=== PATIENT | male | born 1995 | race African-American/Black ===

== ENCOUNTER 2018-03-18 07:07 | Emergency (ER) | payer SELFPAY ==
--- NOTE | 2018-03-18 07:34 | ER Document Report ---
ED Extremity Problem, Lower <BONNIE MELENDEZ - Last Filed: 03/18/18 10:50> - General Mode of Arrival: Ambulatory Information source: Patient <MEG SHAFFER - Last Filed: 03/18/18 12:32> - General Chief Complaint: Knee Injury Stated Complaint: KNEE INJURY Time Seen by Provider: 03/18/18 07:26 Notes: 23 year old male that presents to the emergency department today with complaints of left knee pain. Patient states he injured his left knee playing adult league football two weeks ago in [place]. Patient states he was running drills around cones and hit his left knee on a piece of metal. Patient states he has had swelling over the knee since injuring it. Patient has noticed foul smelling discharge. (MEG SHAFFER) - Related Data Allergies/Adverse Reactions: bee pollen Allergy (Verified 03/18/18 07:13) Past Medical History - General Information source: Patient - Social History Smoking Status: Current Every Day Smoker Cigarette use (# per day): Yes - 1 ppd Frequency of alcohol use: Social Lives with: Family Family History: Reviewed & Not Pertinent <MEG SHAFFER - Last Filed: 03/18/18 12:32> Review of Systems - Review of Systems Constitutional: No symptoms reported EENT: No symptoms reported Cardiovascular: No symptoms reported Respiratory: No symptoms reported Gastrointestinal: No symptoms reported Genitourinary: No symptoms reported Male Genitourinary: No symptoms reported Musculoskeletal: See HPI, Joint pain - left knee, Joint swelling - left knee Skin: See HPI, Lesions - left knee Hematologic/Lymphatic: No symptoms reported Neurological/Psychological: No symptoms reported -: Yes All other systems reviewed and negative <MEG SHAFFER - Last Filed: 03/18/18 12:32> Physical Exam <BONNIE MELENDEZ - Last Filed: 03/18/18 10:50> <MEG SHAFFER - Last Filed: 03/18/18 12:32> - Vital signs Vitals: Temp Pulse Resp BP Pulse Ox 98.4 F 87 16 133/89 H 100 03/18/18 07:21 03/18/18 07:21 03/18/18 07:21 03/18/18 07:21 03/18/18 07:21 - Notes Notes: Physical Exam: General: Alert, appears well. HEENT: Normocephalic. Atraumatic. PERRL. Extraocular movements intact. Oropharynx clear. Neck: Supple. Non-tender. Respiratory: No respiratory distress. Clear and equal breath sounds bilaterally. Cardiovascular: Regular rate and rhythm. Abdominal: Normal Inspection. Non-tender. No distension. Normal Bowel Sounds. Back: Non-tender. No deformity or step off. Extremities: Moves all four extremities. Upper extremities: Normal inspection. Normal ROM. Lower extremities: Left knee effusion, no pain with flexion/extension of left knee. Neurological: Normal cognition. AAOx4. Normal speech. Psychological: Normal affect. Normal Mood. Skin: 2cm x 3cm scabbed area with central opening over the anterior left knee. Pimple appearance over inferior anterior lateral left knee. (MEG SHAFFER) Course - Laboratory Result Diagrams: 03/18/18 07:55 03/18/18 07:55 <BONNIE MELENDEZ - Last Filed: 03/18/18 10:50> - Laboratory Result Diagrams: 03/18/18 07:55 03/18/18 07:55 <MEG SHAFFER - Last Filed: 03/18/18 12:32> - Re-evaluation Re-evalutation: 03/18/18 09:22 Lab work is unremarkable, specifically an ESR of 11. X-rays show all suprapatellar effusion with some soft tissue swelling. Physical exam shows a knee that can be flexed and extended, palpable effusion. There is a wound in the anterior superior aspect of the knee which is mostly scabbed over it appears to be an abrasion that is deep in the center. The center of that injury does communicate with subcutaneous tissue. There is no drainage noted and when it was gently squeezed there was no drainage seen. 03/18/18 10:50 The knee wound was cleaned and dressed, a knee immobilizer was applied to the right knee. The knee immobilizer fits well and provides stability and comfort when standing. (BONNEI MELENDEZ) - Vital Signs Vital signs: Temp Pulse Resp BP Pulse Ox 97.5 F 78 15 138/98 H 98 03/18/18 09:55 03/18/18 09:55 03/18/18 09:55 03/18/18 09:55 03/18/18 09:55 - Laboratory Laboratory results interpreted by me: 03/18/18 03/18/18 07:55 07:55 Hgb 13.3 L Creatinine 1.32 H Discharge <BONNIE MELENDEZ - Last Filed: 03/18/18 10:50> <MEG SHAFFER - Last Filed: 03/18/18 12:32> - Discharge Clinical Impression: Right knee sprain Qualifiers: Encounter type: initial encounter Involved ligament of knee: unspecified ligament Qualified Code(s): S83.91XA - Sprain of unspecified site of right knee , initial encounter Contusion of right knee Qualifiers: Encounter type: initial encounter Qualified Code(s): S80.01XA - Contusion of right knee, initial encounter Abrasion of right knee Qualifiers: Encounter type: initial encounter Qualified Code(s): S80.211A - Abrasion, right knee, initial encounter Condition: Stable Disposition: HOME, SELF-CARE Additional Instructions: Knee Effusion: You have a fluid collection in the knee joint, called an effusion. This fluid build up can occur from irritation of the synovial membrane lining the knee joint or from a more serious injury to the knee. Irritation of the membrane can occur from excessive, repetitive knee activitiy, like kneeling or squatting for extended periods or even just excessive walking, jogging, or skiing. Effusions also can occur with infections in the joint and with some arthritic conditions, especially gout. Fluid collections in these situations are usually yellow in color and either clear or cloudy in appearance. Significant injury to the knee can result in fluid collection which is partly or entirely blood and this condition is known as a hemarthrosis of the knee joint. If the fluid collection is not too large and/or painful, it can be managed conservatively with rest, ice packs, and anti-inflammatory and pain medications as needed. If the fluid collection is large and very painful, the knee joint can be drained (aspirated) by a relatively minor procedure of inserting a needle in the joint and removing some or all of the fluid present. If your knee was aspirated, you should rest it as much as possible for a few days, keep a pressure dressing around the knee and apply ice packs for at least 48 - 72 hours. If there are signs of developing infection such as heat and redness of the knee, fever, etc. you should return immediately for a recheck. Your lab work does not show signs of an infectious or inflammatory process. Use the knee immobilizer to protect the knee. Keep the abrasion on the front of the knee clean and dressed. Take the antibiotics as prescribed to help prevent an infection from developing. Elevate the leg as much as possible. Limit walking as much as possible. Follow-up with [facility] for surgery orthopedic group or with an orthopedic surgeon in your hometown when you return home. RETURN TO THE EMERGENCY ROOM IF ANY NEW OR WORSENING SYMPTOMS. Prescriptions: Cephalexin Monohydrate [Keflex 500 mg Capsule] 500 mg PO QID #28 capsule Scribe Attestation: 03/18/18 07:49 I personally performed the services described in the documentation, reviewed and edited the documentation which was dictated to the scribe in my presence, and it accurately records my words and actions. (BONNIE MELENDEZ)
[2018-03-18 08:09] LABS: ABSOLUTE EOSINOPHILS # (AUTO) 0.2 10^3/uL (0.0-0.6); ABSOLUTE LYMPHOCYTES (AUTO) 2.3 10^3/uL (0.5-4.7); ABSOLUTE MONOCYTES (AUTO) 0.4 10^3/uL (0.1-1.4); ABSOLUTE NEUT (AUTO) 3.6 10^3/uL (1.7-8.2); BASOPHILS % (AUTO) 0.8 % (0-2); HEMATOCRIT 39.3 % (37.9-51.0); HEMOGLOBIN 13.3 g/dL (13.5-17.0); LYMPHOCYTES % (AUTO) 34.2 % (13-45); MEAN CORPUSCULAR HEMOGLOBIN 27.9 pg (27.0-33.4); MEAN CORPUSCULAR VOLUME 82 fl (80-97); MONOCYTES % (AUTO) 6.6 % (3-13); PLATELET COUNT 181 10^3/uL (150-450); RED BLOOD COUNT 4.79 10^6/uL (4.35-5.55); RED CELL DISTRIBUTION WIDTH 13.6 % (11.5-14.0); SEGMENTED NEUTROPHILS % (AUTO) 55.4 % (42-78); TOTAL CELLS COUNTED % (AUTO) 100 %; WHITE BLOOD COUNT 6.6 10^3/uL (4.0-10.5)
--- NOTE | 2018-03-18 08:18 | RADIOLOGY REPORT (SQ) ---
EXAM DESCRIPTION: KNEE LEFT 3 VIEWS COMPLETED DATE/TIME: 03/18/2018 7:57 am REASON FOR STUDY: Injury with effusion COMPARISON: None. NUMBER OF VIEWS: Four views. TECHNIQUE: AP, lateral, and both oblique radiographic images acquired of the left knee. LIMITATIONS: None. FINDINGS: MINERALIZATION: Normal. BONES: No acute fracture or dislocation. No worrisome bone lesions. JOINT: Small suprapatellar effusion. SOFT TISSUES: soft tissue swelling. No radio-opaque foreign body. OTHER: No other significant finding. IMPRESSION: 1. Soft tissue swelling and small suprapatellar effusion. Correlation suggested appear 2. No acute osseous findings. TECHNICAL DOCUMENTATION: JOB ID: [id number] [employer]- All Rights Reserved Reading location - IP/workstation name: [email or web address]
[2018-03-18 08:31] LABS: ALANINE AMINOTRANSFERASE 41 U/L (21-72); ALKALINE PHOSPHATASE 62 U/L (38-126); ANION GAP 7 (5-19); ASPARTATE AMINO TRANSFERASE 36 U/L (17-59); BILIRUBIN,DIRECT 0.4 mg/dL (0.0-0.4); BILIRUBIN,TOTAL 0.4 mg/dL (0.2-1.3); BLOOD UREA NITROGEN 14 mg/dL (7-20); CALCIUM 8.8 mg/dL (8.4-10.2); CARBON DIOXIDE 28 mmol/L (22-30); CHLORIDE 105 mmol/L (98-107); GLUCOSE 98 mg/dL (75-110); SODIUM 140.4 mmol/L (137-145); TOTAL PROTEIN 6.9 g/dL (6.3-8.2)
[2018-03-18 08:33] LABS: C-REACTIVE PROTEIN < 5.0 mg/L (<10.0)
[2018-03-18 08:49] LABS: ERYTHROCYTE SEDIMENTATION RATE 11 mm/hr (0-15)
[2018-03-18] MEDS ORDERED: CEPHALEXIN 500 MG CAPSULE PO ONE (09:10)
[2018-03-18 09:56] VITALS: BP 138/98
== END 2018-03-18 09:57 | disposition home or self-care (01) ==
LOC: ER 07:07
DX: S83.91XA Sprain of unspecified site of right knee, initial encounter (principal); S80.01XA Contusion of right knee, initial encounter; S80.211A Abrasion, right knee, initial encounter; W21.9XXA Striking against or struck by unspecified sports equipment, initial encounter; Y93.61 Activity, american tackle football; F17.210 Nicotine dependence, cigarettes, uncomplicated
CPT/HCPCS: 99284; 36415; 85025; 85652; 86140; 80053; 73562; L1830